=== PATIENT | male | born 1965 | race Caucasian/White ===

== ENCOUNTER 2017-05-25 08:29 | Day surgery (SDC) | payer OTHER ==
[2017-05-25] MEDS ORDERED: MIDAZOLAM 1 MG/ML 2 ML INJ (09:40)
[2017-05-25] MEDS ORDERED: FENTAnyl 50 MCG/ML VIAL (09:40)
[2017-05-25] MEDS ORDERED: PROPOFOL 20 ML (09:40)
== END 2017-05-25 12:20 | disposition home or self-care (01) ==
LOC: GIL 08:29
DX: Z12.11 Encounter for screening for malignant neoplasm of colon (principal); K63.5 Polyp of colon; K64.4 Residual hemorrhoidal skin tags
CPT/HCPCS: 45385; 88305